=== PATIENT | female | born 1995 | race Caucasian/White ===

== ENCOUNTER 2017-07-21 17:04 | Emergency (ER) | payer OTHER ==
[~2017-07-21] VITALS: Ht 162.6 cm; Wt 69.7 kg
[~2017-07-21 17:04] MED LIST: AMOXICILLIN500 MG PO; ATARAX,VISTARIL50 MG PO; BACTROBAN NASAL1 G1 BOTH NARES; BUPROPION HCL150 M2 PO; CLEOCIN300 MG PO; FOCALIN XR30 MG PO; HIBICLENS118 ML TP; IMPLANON68 MG SC; LAMICTAL ODT50 MG PO; MACROBID100 MG PO; NAPROSYN500 MG PO; NAPROXEN500 MG PO; NATALCARE RX1 TABLET PO; PREDNISONE20 MG PO; TESSALON PERLE100 MG PO; ZANTAC300 MG PO; ZITHROMAX250 MG PO; Zantac PO
[2017-07-21 22:00] VITALS: BP 109/71
== END 2017-07-21 22:04 | disposition home or self-care (01) ==
LOC: EME 17:04
DX: T40.1X1A Poisoning by heroin, accidental (unintentional), initial encounter (principal); R00.0 Tachycardia, unspecified; R40.0 Somnolence; R07.9 Chest pain, unspecified; R11.2 Nausea with vomiting, unspecified; Y92.009 Unspecified place in unspecified non-institutional (private) residence as the place of occurrence of the external cause; F11.10 Opioid abuse, uncomplicated; F31.9 Bipolar disorder, unspecified; F17.200 Nicotine dependence, unspecified, uncomplicated
CPT/HCPCS: 99281; 99284

== ENCOUNTER 2018-06-25 18:25 | Emergency (ER) | payer OTHER ==
[~2018-06-25] VITALS: Ht 160 cm; Wt 72.3 kg
[2018-06-25] MEDS ORDERED: PEN-VEE K,VEET500 MG PO (19:44)
[2018-06-25 19:59] VITALS: BP 112/76
[2018-06-26] MEDS ORDERED: ZOFRAN ODT4 MG PO (19:58)
== END 2018-06-25 20:01 | disposition home or self-care (01) ==
LOC: EME 18:25
PROC: 3E0T3BZ Introduction of Anesthetic Agent into Peripheral Nerves and Plexi, Percutaneous Approach (ICD-10-PCS; principal; 2018-06-25)
DX: K08.89 Other specified disorders of teeth and supporting structures (principal); Z3A.14 14 weeks gestation of pregnancy; Z88.2 Allergy status to sulfonamides; Z88.1 Allergy status to other antibiotic agents
CPT/HCPCS: 99281; 99283